=== PATIENT | male | born 1960 | race Caucasian/White ===

== ENCOUNTER 2020-04-25 09:06 | Inpatient (IN) | payer OTHER ==
[~2020-04-25] VITALS: Ht 172.7 cm; Wt 116.6 kg
[2020-04-25] MEDS ORDERED: GLIPIZIDE10 MG PO (09:41)
[2020-04-25] MEDS ORDERED: FORTAMET1000 MG (09:41)
[2020-05-01] MEDS ORDERED: SPIRONOLACTONE50 MG PO (09:15)
[2020-05-01] MEDS ORDERED: PROPRANOLOL HCL10 MG PO (09:15)
== END 2020-05-01 10:31 | disposition home or self-care (01) | DRG 433 ==
LOC: ER 09:06 → MEDI 18:54 → SEC-K 18:54 → MEDJ 04-26 08:19 → MEDI 04-26 08:25 → MEDJ 04-26 14:30
PROVIDERS: ADMIT Internal Medicine; ATTEND Internal Medicine
PROC: 0W9G3ZX Drainage of Peritoneal Cavity, Percutaneous Approach, Diagnostic (ICD-10-PCS; principal; 2020-04-26)
PROC: 0DB78ZX Excision of Stomach, Pylorus, Via Natural or Artificial Opening Endoscopic, Diagnostic (ICD-10-PCS; 2020-04-28)
DX: K70.31 Alcoholic cirrhosis of liver with ascites (principal); K76.6 Portal hypertension; E46 Unspecified protein-calorie malnutrition; K29.60 Other gastritis without bleeding; D69.6 Thrombocytopenia, unspecified

== ENCOUNTER 2020-05-08 17:10 | Inpatient (IN) | payer OTHER ==
[~2020-05-08] VITALS: Ht 172.7 cm; Wt 93.0 kg
[~2020-05-08 17:10] MED LIST: FORTAMET1000 MG; GLIPIZIDE10 MG PO; PROPRANOLOL HCL10 MG PO; SPIRONOLACTONE50 MG PO
== END 2020-05-11 05:02 | disposition expired | DRG 871 ==
LOC: ER → ICU-2 23:39
PROVIDERS: ADMIT Internal Medicine; ATTEND Internal Medicine
PROC: 4A033R1 Measurement of Arterial Saturation, Peripheral, Percutaneous Approach (ICD-10-PCS; principal; 2020-05-08)
PROC: 0BH17EZ Insertion of Endotracheal Airway into Trachea, Via Natural or Artificial Opening (ICD-10-PCS; 2020-05-10)
PROC: 5A1935Z Respiratory Ventilation, Less than 24 Consecutive Hours (ICD-10-PCS; 2020-05-10)
DX: A41.01 Sepsis due to Methicillin susceptible Staphylococcus aureus (principal); K76.7 Hepatorenal syndrome; R65.21 Severe sepsis with septic shock; E87.2 Acidosis; N17.8 Other acute kidney failure; D69.6 Thrombocytopenia, unspecified; D53.9 Nutritional anemia, unspecified; E87.5 Hyperkalemia; Z20.822 Contact with and (suspected) exposure to COVID-19; K72.90 Hepatic failure, unspecified without coma; K74.69 Other cirrhosis of liver; I10 Essential (primary) hypertension; E11.9 Type 2 diabetes mellitus without complications; Z79.84 Long term (current) use of oral hypoglycemic drugs